=== PATIENT | male | born 1975 | race Caucasian/White ===

== ENCOUNTER 2018-10-17 09:36 | Day surgery (SDC) | payer OTHER ==
[~2018-10-17] VITALS: Ht 182.9 cm; Wt 85.7 kg
[~2018-10-17 09:36] MED LIST: KETAMINE HCL 200 MG/20 ML VIAL As Ordered ONE; KETOROLAC 60 MG/2 ML VIAL (J1885) As Ordered ONE; LIDOCAINE 1% MDV 20ML VIAL SQ PRN; LIDOCAINE 2% INJ 100 MG/5 ML SDV (FOR ANES.) As Ordered ONE; LR 1,000 ML IV ONE; MIDAZOLAM INJ 2 MG/2 ML VIAL (J2250) As Ordered ONE; ONDANSETRON 4MG/2ML VIAL (J2405) As Ordered ONE; PROPOFOL 200 MG/20 ML VIAL As Ordered ONE; ROCURONIUM BROMIDE 50 MG/5 ML VIAL As Ordered ONE; SUGAMMADEX SODIUM 500 MG/5 ML VIAL (BRIDION) As Ordered ONE; dexameTHASONE 4 MG/ML 1ML VIAL (J1100) As Ordered ONE; fentaNYL 250 MCG/5 ML INJECTION (J3010) As Ordered ONE
[2018-10-17] MEDS ORDERED: METHOCARBAMOL 1,000 MG/10 ML VIAL (J2800) As Ordered ONE (09:40)
[2018-10-17 10:18] LABS: HEMATOCRIT 43.7 % (42.0-52.0); HEMOGLOBIN 15.3 g/dl (13.5-17.5); MEAN CORPUSCULAR HEMOGLOBIN 33.1 pg (27.0-33.0); MEAN CORPUSCULAR VOLUME 94.6 fl (80.0-96.0); PLATELET COUNT, AUTOMATED 318 10^3/uL (150-450); RED BLOOD COUNT 4.62 10^6/uL (4.30-6.10)
[2018-10-17] MEDS ORDERED: SCOPOLAMINE 1MG TRANSDERMAL PATCH As Ordered ONE (12:30)
[2018-10-17] MEDS ORDERED: SCOPOLAMINE 1MG TRANSDERMAL PATCH TOP ONE (13:00)
[2018-10-17] MEDS ORDERED: BUPIVACAINE HCL 0.25% 10 ML VIAL As Ordered ONE (15:20)
[2018-10-17] MEDS ORDERED: BUPIVACAINE/EPIN 0.25% 30 ML VIAL As Ordered ONE (15:20)
[2018-10-17] MEDS ORDERED: POLYSPORIN TOPICAL OINTMENT 15GM As Ordered ONE (15:21)
[2018-10-17] MEDS ORDERED: ROCURONIUM BROMIDE 50 MG/5 ML VIAL As Ordered ONE (16:11)
[2018-10-17] MEDS ORDERED: DESFLURANE 240 ML INHALANT As Ordered ONE (16:16)
[2018-10-17] MEDS ORDERED: fentaNYL 100 MCG/2 ML INJECTION (J3010) As Ordered ONE (16:57)
[2018-10-17] MEDS ORDERED: ONDANSETRON 4MG/2ML VIAL (J2405) IV PRN (17:45)
[2018-10-17] MEDS ORDERED: fentaNYL 100 MCG/2 ML INJECTION (J3010) IV PRN (17:45)
[2018-10-17] MEDS ORDERED: LR 1,000 ML IV SCH (17:45)
[2018-10-17] MEDS ORDERED: PERCOCET 5MG/325MG TAB PO PRN (17:45)
[2018-10-17] MEDS ORDERED: MEPERIDINE INJ 25 MG/ML VIAL (J2175) IV PRN (17:45)
[2018-10-17] MEDS ORDERED: METOCLOPRAMIDE INJ 10MG/2ML VIAL (J2765) IV PRN (17:45)
[2018-10-17 20:05] VITALS: BP 145/87
--- NOTE | 2018-10-20 16:22 | RO ---
DATE OF PROCEDURE: 10/17/2018 PREOPERATIVE DIAGNOSIS: Right inguinal hernia and family planning. POSTOPERATIVE DIAGNOSIS: Right inguinal hernia and family planning. PROCEDURE: Robotic right inguinal hernia repair with robotic bilateral vasectomy. SURGEON: Dr. Leroy Cain OFFICE ADMIN: None. ANESTHESIA: General. ESTIMATED BLOOD LOSS: 10 mL. COMPLICATIONS: None. INDICATIONS FOR PROCEDURE: The patient is a 43-year-old male who presents with persistent pain and a bulge in the right groin, found to have a large right inguinal hernia. Recommendation was to proceed with repair. While doing the procedure, he asked if we could do a vasectomy. I explained to him that we could do so robotically. The risks and benefits of the procedure not limited to but including bleeding, infection, hernia formation, hernia recurrence, damage to surrounding structures, need for further surgery and possibility of the vasectomy not working were discussed in detail with him. He understood the risks and benefits and signed consent. DESCRIPTION OF PROCEDURE: The patient was brought back to operating room seven, after sufficient sedation, the abdomen was sterilely prepped and draped. Next, a time-out was done to confirm proper patient, proper procedure. Following that, Veress needle was inserted in the abdomen in the left upper quadrant through a stab incision. The abdomen was insufflated to 15 mmHg. Next, an 8 mm supraumbilical midline incision was made, the 8 mm robotic port was used to gain access to the abdomen. Once the abdomen was entered, two more 8 mm ports were placed in the left and right midabdomen. The Veress needle site was examined to confirm no injury. The Veress needle was removed. Next, the patient was placed in 15 degrees head down, the robot was connected to the ports. Next, from the console, the right groin had obvious indirect hernia easily identifiable. The preperitoneal space was entered with a curved incision. The hernia sac was dissected circumferentially away from the cord structures using a combination of blunt and sharp dissection. Once that was completed, the incision was carried medially all the way to the pubic symphysis. Once the hernia dissection was completed, the vas deferens was identified medially. This was skeletonized for a length of about 3 cm. It was then clipped once distally and twice proximally and then the segment in the center was cut out and sent for pathology. Once that was completed, I went to the left side, was able to visualize the vas deferens through the peritoneum, made a small incision right over top of it, grabbed onto it and skeletonized it again for about 3 cm, clipped once distally to proximally and cut out the center segments, sent that for pathology as well. Next, the Bard 3DMax Light Mesh was placed in the right side, sutured to the pubic symphysis with a #2-0 Vicryl suture. The #2-0 V-Loc was then used to reapproximate the peritoneum over top of it. Another #2-0 V-Loc was used to close the defect in the peritoneum on the left side. Once this was completed, needles were removed, abdomen was desufflated. Skin incisions were closed with #4-0 Vicryl subcuticular sutures. The abdomen was cleaned and dried. Steri-Strips, 4x4, and tape were applied thus ending procedure.
== END 2018-10-17 20:10 | disposition home or self-care (01) ==
LOC: M SDC 09:36
PROVIDERS: ATTEND Surgery
DX: K40.90 Unilateral inguinal hernia, without obstruction or gangrene, not specified as recurrent (principal); Z30.2 Encounter for sterilization
CPT/HCPCS: 36415; 49650; 55559; 85027; 88302; C1781; J0690; J1100; J1885; J2250; J2405; J3010

== ENCOUNTER → 2018-12-17 | Outpatient (CLI) | payer OTHER ==
--- NOTE | 2018-12-17 15:44 | REP ---
Right foot four views : There is no fracture or dislocation. Mineralization and joint spaces are normal. There are no calcifications or foreign bodies. Impression: Negative right foot . Electronically Signed by Leroy Tapia MD 12/17/2018 03:35 P
[2018-12-17 17:23] LABS: BASO % 0.3 % (0.0-1.0); EOS # 0.1 10^3/uL (0.0-0.5); EOS % 0.5 % (0.0-3.0); HEMATOCRIT 41.5 % (42.0-52.0); HEMOGLOBIN 13.8 g/dl (13.5-17.5); LYMPH # 1.6 10^3/uL (1.5-5.0); LYMPH % 13.8 % (24.0-44.0); MEAN CORPUSCULAR HGB CONC 33.3 g/dl (32.0-36.5); MEAN CORPUSCULAR VOLUME 96.3 fl (80.0-96.0); MONO # 0.6 10^3/uL (0.0-0.8); MONO % 5.4 % (0.0-5.0); NEUTROPHILS # 9.2 10^3/uL (1.5-8.5); NEUTROPHILS % 79.4 % (36.0-66.0); PLATELET COUNT, AUTOMATED 355 10^3/uL (150-450); RED BLOOD COUNT 4.31 10^6/uL (4.30-6.10); WHITE BLOOD COUNT 11.6 10^3/uL (4.0-10.0)
[2018-12-17 17:33] LABS: ALBUMIN 4.1 GM/DL (3.2-5.2); ALT/SGPT 53 U/L (12-78); BILIRUBIN,TOTAL 0.7 MG/DL (0.2-1.0); BLOOD UREA NITROGEN 10 MG/DL (7-18); CALCIUM LEVEL 9.4 MG/DL (8.5-10.1); CARBON DIOXIDE LEVEL 26 MEQ/L (21-32); CHLORIDE LEVEL 103 MEQ/L (98-107); CREATININE FOR GFR 1.06 MG/DL (0.70-1.30); GLOMERULAR FILTRATION RATE > 60.0 (>60); GLUCOSE, FASTING 125 MG/DL (70-100); POTASSIUM SERUM 4.2 MEQ/L (3.5-5.1); SODIUM LEVEL 139 MEQ/L (136-145); TOTAL PROTEIN 7.4 GM/DL (6.4-8.2); URIC ACID 6.5 MG/DL (3.5-7.2)
== END ==
LOC: M WUC 13:24
PROVIDERS: ATTEND Physician Assistant
DX: L03.115 Cellulitis of right lower limb (principal)

== ENCOUNTER → 2019-10-14 | Outpatient (CLI) | payer OTHER ==
--- NOTE | 2019-10-14 16:31 | REP ---
Right great toe series: Four views. History: Right toe joint pain. Comparison study December 17, 2018. Findings: There is soft-tissue swelling about the first metatarsal phalangeal joint. No erosive changes seen. No soft tissue calcification is appreciated. Impression: Soft-tissue swelling at the first MTP joint. Otherwise negative radiographs. Electronically Signed by Micheal Keene MD 10/14/2019 04:23 P
== END ==
LOC: M WUC 15:19
PROVIDERS: ATTEND Family Medicine
DX: M79.674 Pain in right toe(s) (principal)

== ENCOUNTER → 2020-10-07 | Outpatient (REF) | payer OTHER | LOC: M LAB REF 12:21 | PROVIDERS: ATTEND Family Medicine | DX: M10.9 Gout, unspecified (principal) ==

== ENCOUNTER 2023-04-15 10:01 | Day surgery (SDC) | payer OTHER ==
[~2023-04-15] VITALS: Ht 180.3 cm; Wt 87.5 kg
[~2023-04-15 10:01] MED LIST changes: -KETAMINE HCL 200 MG/20 ML VIAL As Ordered ONE; -KETOROLAC 60 MG/2 ML VIAL (J1885) As Ordered ONE; -LIDOCAINE 1% MDV 20ML VIAL SQ PRN; -LIDOCAINE 2% INJ 100 MG/5 ML SDV (FOR ANES.) As Ordered ONE; -LR 1,000 ML IV ONE; -MIDAZOLAM INJ 2 MG/2 ML VIAL (J2250) As Ordered ONE; +NS 1,000 ML IV ONE; -ONDANSETRON 4MG/2ML VIAL (J2405) As Ordered ONE; -PROPOFOL 200 MG/20 ML VIAL As Ordered ONE; -ROCURONIUM BROMIDE 50 MG/5 ML VIAL As Ordered ONE; -SUGAMMADEX SODIUM 500 MG/5 ML VIAL (BRIDION) As Ordered ONE; -dexameTHASONE 4 MG/ML 1ML VIAL (J1100) As Ordered ONE; -fentaNYL 250 MCG/5 ML INJECTION (J3010) As Ordered ONE
[2023-04-15] MEDS ORDERED: LIDOCAINE 2% 100MG/5ML SDV (FOR ANES.) As Ordered ONE (11:29)
[2023-04-15] MEDS ORDERED: propofoL 200 MG/20 ML VIAL As Ordered ONE (11:29)
[2023-04-15 11:56] VITALS: TEMP 98.1
[2023-04-15 12:09] VITALS: BP 124/65; O2SAT 95
== END 2023-04-15 12:16 | disposition home or self-care (01) ==
LOC: M OPP 10:01
PROVIDERS: ATTEND Internal Medicine Gastroenterology
DX: Z12.11 Encounter for screening for malignant neoplasm of colon (principal); K64.0 First degree hemorrhoids

== ENCOUNTER → 2023-06-27 | Outpatient (REF) | payer OTHER | LOC: M LAB REF 16:42 | PROVIDERS: ATTEND Physician Assistant Medical | DX: M10.9 Gout, unspecified (principal) ==

== ENCOUNTER → 2024-01-07 | Outpatient (REF) | payer OTHER | LOC: M LAB REF 12:56 | PROVIDERS: ATTEND Family Medicine | DX: M10.9 Gout, unspecified (principal) ==

== ENCOUNTER → 2025-03-04 | Outpatient (REF) | payer OTHER | LOC: M LAB REF 12:28 | PROVIDERS: ATTEND Family Medicine | DX: M10.9 Gout, unspecified (principal) ==

== ENCOUNTER → 2025-03-08 | Outpatient (CLI) | payer OTHER | LOC: M WUC 10:50 | PROVIDERS: ATTEND Student in an Organized Health Care Education/Training Program | DX: M79.672 Pain in left foot (principal) ==